=== PATIENT | female | born 1945 | race Caucasian/White ===

== ENCOUNTER 2019-03-16 22:21 | Emergency (ER) | payer MEDICARE ==
--- NOTE | ~2019-03-16 | EKG ---
[place], [place] ELECTROCARDIOGRAM REPORT NAME: IVAN HENSLEY UNIT #: [id number] ROOM: DOCTOR: EPIPHANY DRAFT REPORT BIRTHDATE: [birth year] [facility] Test Date: 2019-03-17 Test Time: 00:00:06 Pat Name: IVAN HENSLEY Department: Room: Gender: F Hand Packager: Efren Wolfe : 1945 Requested By: ALEX OWEN Order Number: [id number] Reading MD: Jacob Medina MD Measurements Intervals [place] Rate: 82 P: 80 SD: 158 QRS: 68 QRSD: 105 T: 74 QT: 393 QTc: 459 Interpretive Statements Sinus rhythm Probable left atrial enlargement RSR' in V1 or V2, probably normal variant Nonspecific T abnrm, anterolateral leads Baseline wander in lead(s) V1 Compared to ECG 12/07/2018 19:33:14 RSR' in V1 or V2 now present Sinus tachycardia no longer present Incomplete right bundle-branch block no longer present Electronically Signed On 03-23-2019 17:47:20 PDT by Jacob Medina MD CM:EKGRPT:ELECTROCARDIOGRAM REPORT [id number] ALEX PATEL DRAFT REPORT ALEX OWEN DO
[~2019-03-16 22:21] MED LIST: ALBUTEROL0.09 MG/A2 INH; BACTRIM DS 8001 TA1 PO; KEFLEX500 MG PO; LISINOPRIL10 M1 PO; MULTIVITAMINS1 EAC5 PO; PREDNICOT10 MG PO; PREDNISONE10 MG PO; ZITHROMAX Z PA250 MG PO
[2019-03-17 00:35] LABS: HEMATOCRIT 36.2 % (37.0-47.0); HEMOGLOBIN 11.2 g/dl (12.0-16.0); MEAN CELL VOLUME 103.7 fl (81.0-99.0); MEAN CORPUSCULAR HGB 32.1 pg (27.0-31.0); MEAN CORPUSCULAR HGB CONC 30.9 g/dl (33.0-37.0); MEAN PLATELET VOLUME 9.4 fl (9.6-12.3); NUCLEATED RED BLOOD CELL 0.3 % (0.0-0.0); PLATELET COUNT AUTOMATED 271 10*3/uL (130-400); RED BLOOD COUNT 3.49 10*6/uL (4.10-5.10); RED CELL DISTRI WIDTH 13.4 % (0-14.5)
[2019-03-17 00:47] LABS: INTERNATIONAL NORM RATIO 1.3 (2.0-3.5)
[2019-03-17 00:51] LABS: ALBUMIN 2.9 gm/dl (3.1-4.5); CREATININE 1.3 mg/dL (0.55-1.02); POTASSIUM 5.8 mmol/L (3.5-5.1); TOTAL PROTEIN 5.9 gm/dL (6.4-8.2)
[2019-03-17 00:58] LABS: TROPONIN I 0.418 ng/ml (<0.045)
[2019-03-17 01:08] LABS: TOTAL CELLS COUNTED 100 #CELLS
[2019-03-17 01:09] LABS: BURR CELLS FEW; PLATELET SUFFICIENCY NORMAL (NORMAL)
[2019-03-17 02:45] VITALS: BP 151/83
[2019-03-17 05:11] LABS: ABG HCO3 22.1 mmol/l (22-26); ABG O2 SATURATION 99.5 % (95-97)
[2019-03-17 05:15] LABS: ABG BASE EXCESS -11.8 mmol/L (-2.0-2.0); ARTERIAL BLOOD GAS PCO2 93.5 mmHg (35-45); ARTERIAL BLOOD GAS PH 6.994 (7.35-7.45)
== END 2019-03-17 05:10 | disposition short-term general hospital (02) ==
LOC: ED 22:21
PROVIDERS: Emergency Medicine
DX: I46.9 Cardiac arrest, cause unspecified (principal); J18.9 Pneumonia, unspecified organism; I10 Essential (primary) hypertension; J44.9 Chronic obstructive pulmonary disease, unspecified; F17.200 Nicotine dependence, unspecified, uncomplicated; Z79.899 Other long term (current) drug therapy